=== PATIENT | female | born 1935 | race Two or more races ===

== ENCOUNTER 2022-07-27 10:20 | Emergency (ER) | payer OTHER ==
[~2022-07-27] VITALS: Ht 154.9 cm; Wt 136.0 kg
[2022-07-27 11:17] VITALS: BP 137/86
[2022-07-27 11:49] LABS: Basophils # (auto) 0.1 10 ^3/uL (0-0.2); Eosinophils # (auto) 0 10 ^3/uL (0-0.8); Neutrophils # (auto) 1.8 10 ^3/uL (1.6-8.6); Nucleated Red Blood Cells % 0.6 %
[2022-07-27 11:51] LABS: Basophils % (auto) 1.7 % (0.0-2.0); Eosinophils % (auto) 1.3 % (0.0-7.0); Hematocrit 28.8 % (36.0-46.0); Hemoglobin 9.3 g/dL (12.2-16.2); Lymphocytes # (auto) 0.8 10 ^3/uL (0.4-5.4); Lymphocytes % (auto) 25.6 % (10.0-50.0); Mean Corpuscular Hemoglobin 26.4 pg (28.0-32.0); Mean Corpuscular Hgb Conc. 32.1 g/dL (32.0-36.0); Monocytes # (auto) 0.3 10 ^3/uL (0-1.3); Monocytes % (auto) 11.3 % (0.0-12.0); Neutrophils % (auto) 60.1 % (37.0-80.0); Red Blood Cells 3.51 10^6/uL (4.0-5.20); White Blood Cell 3.1 10^3/uL (4.4-10.8)
[2022-07-27 12:16] LABS: Albumin 1.8 g/dL (3.4-5.0); Calcium 8.1 mg/dL (8.5-10.1); Potassium 4.5 mmol/L (3.5-5.1)
[2022-07-27 12:19] LABS: BUN/Creatinine Ratio 36.2; Bilirubin, Total 3.8 mg/dL (0.2-1.0); Total Protein 6.8 g/dL (6.4-8.2)
== END 2022-07-27 13:47 | disposition left against medical advice (07) ==
LOC: EDBD 10:20 → ER 10:20
DX: K62.5 Hemorrhage of anus and rectum (principal); Z53.21 Procedure and treatment not carried out due to patient leaving prior to being seen by health care provider
CPT/HCPCS: 36415; 80053; 85025